=== PATIENT | female | born 1985 | race Caucasian/White ===

== ENCOUNTER 2018-05-04 20:40 | Inpatient (IN) | payer SELFPAY ==
[2018-05-04 21:46] LABS: #Basophils 0.1 thou/uL (0.0-0.2); #Eosinphils 0.1 thou/uL (0.0-0.7); #Lymphocytes 2.6 thou/uL (1.20-3.40); #Monocytes 0.8 thou/uL (0.11-0.59); #Neutrophils 6.9 thou/uL (1.40-6.50); %Basophils 0.6 % (0.0-1.0); %Lymphocytes 25.2 % (21.0-51.0); %Monocytes 7.2 % (0.0-10.0); %Neutrophils 65.9 % (42.0-75.0); Mean Corpuscular HGB CONC 32.3 g/dL (32.0-36.0); Mean Corpuscular Hemoglobin 30.6 pg (27.0-31.0); Mean Corpuscular Volume 94.9 fL (78.0-98.0); Mean Platelet Volume 9.4 fL (7.4-10.4); Platelet Count 177 thou/uL (130-400); RBC Distribution Width 14.2 % (11.5-14.5); Red Blood Cell (RBC) Count 4.58 mill/uL (4.20-5.40); White Blood Cell (WBC) Count 10.5 thou/uL (4.8-10.8)
--- NOTE | 2018-05-04 21:48 | RAD ---
CHEST TWO VIEWS: 05/04/18 HISTORY: Dyspnea. FINDINGS: The heart is borderline. There are changes of median sternotomy. The lungs are expanded without lobar consolidation, pneumothoraces, or pleural effusions. IMPRESSION: No acute process. POS: [facility]
[2018-05-04 22:09] LABS: ALT (SGPT) 93 U/L (8-55); AST (SGOT) 76 U/L (5-34); Albumin 4.1 g/dL (3.5-5.0); Alkaline Phosphatase 68 U/L (40-150); Anion Gap 13 mmol/L (10-20); BUN (Urea Nitrogen) 15 mg/dL (7.0-18.7); Bilirubin, Total 3.2 mg/dL (0.2-1.2); CK (CPK) 114 U/L (29-168); Calc. Creatinine Clearance 0 mL/min (70-130); Calcium 8.8 mg/dL (7.8-10.44); Carbon Dioxide 24 mmol/L (22-29); Chloride 105 mmol/L (98-107); Estimated GFR-MDRD 57; Globulin 2.8 g/dL (2.4-3.5); Glucose 126 mg/dL (70-105); Lipase 26 U/L (8-78); Potassium 3.7 mmol/L (3.5-5.1); Protein, Total 6.9 g/dL (6.0-8.3); Sodium 138 mmol/L (136-145)
[2018-05-04 22:10] LABS: CKMB 2.4 ng/mL (0-6.6); Troponin I 0.016 ng/mL (< 0.028)
[2018-05-04] MEDS ORDERED: Ketorolac Tromethamine 30 MG/ML VIAL ONE (23:46)
[2018-05-04] MEDS ORDERED: Ondansetron HCl/PF 4 MG/2 ML Vial ONE (23:46)
[2018-05-04] MEDS ORDERED: Pantoprazole 40 MG VIAL ONE (23:46)
[2018-05-05] MEDS ORDERED: Piperacillin/Tazobactam 4.5 GM VIAL ONE (01:55)
[2018-05-05] MEDS ORDERED: Ondansetron HCl/PF 4 MG/2 ML Vial IVP PRN ×2 (02:38→17:46)
[2018-05-05] MEDS ORDERED: Acetaminophen 325 MG TAB PO PRN (02:38)
[2018-05-05] MEDS ORDERED: Ondansetron ODT 4 MG TAB SL PRN (02:38)
[2018-05-05] MEDS: Sodium Chloride 0.9% 1,000 ML IV SCH ×3 (03:00→17:20)
[2018-05-05 03:44] VITALS: BMI 30.4
--- NOTE | 2018-05-05 08:03 | HP ---
CHIEF COMPLAINT: Muscle fatigue and right upper quadrant pain. HISTORY OF PRESENT ILLNESS: This is a 32-year-old female, who has Marfan syndrome. She reports a 2- week history of just feeling bad, diminished appetite, weakness, nausea, vomiting, and some right upp er quadrant pain radiating to the back. She has had some dark urine. PAST MEDICAL HISTORY: Significant for Marfan syndrome. PAST SURGICAL HISTORY: She had open heart surgery at [facility] in 2001. MEDICATIONS: She takes atenolol 50. ALLERGIES: LACTOSE. SOCIAL HISTORY: She is single. She works in [employer]. No tobacco, rare alcohol. FAMILY HISTORY: Marfan's in her mother's side. PHYSICAL EXAMINATION: VITAL SIGNS: Temperature 97.8, pulse 82, blood pressure 135/73. GENERAL: She has Marfan's features with long arms, short torso, long legs. HEENT: She wears glasses. LUNGS: Clear. HEART: Regular rate and rhythm. ABDOMEN: Soft. She is mildly tender in the right upper quadrant. EXTREMITIES: As described. LABORATORY AND X-RAY FINDINGS: Her white count is 10.5, H and H 14 and 43, platelet count of 177. S he has elevated bilirubin at 3.2, AST is 76 and ALT at 93. She has an ultrasound showing cholelithia sis. ASSESSMENT: Cholelithiasis, possible choledocholithiasis. PLAN: Cardiology consult for the Marfan's and GI consult for possible ERCP.
--- NOTE | 2018-05-05 08:45 | ULT ---
PRELIMINARY REPORT/[facility]/EMERGENTY AFTER-HOURS PROCEDURE US Abdomen Limited, Right Upper Quadrant EXAM DATE/TIME: 05/04/2018 11:58 PM CLINICAL HISTORY: 32 years old, female; Signs and symptoms; Nausea and vomiting and other: Diarrhea; Patient HX: Abd bl oating, inability to tolerate food TECHNIQUE: Real-time ultrasound of the abdomen with image documentation. Examination was focused on the right up per quadrant. COMPARISON: No relevant prior studies available. FINDINGS: Liver: There is mild hepatomegaly with echogenic liver suggestive of hepatic steatosis. Gallbladder: There is gallbladder wall thickening measuring up to 8 mm and pericholecystic fluid. Neg ative sonographic Marmolejo sign however patient has received pain medication making sign less reliable. Common bile duct: CBD measures up to 4 mm in diameter. Pancreas: Visualized pancreas is unremarkable. Right kidney: RIGHT kidney measures 9.2 x 3.7 x 4.7 cm. No hydronephrosis or stones. Aorta: Visualized aorta and IVC are unremarkable. Intraperitoneal space: Trace ascites is noted. IMPRESSION: 1. Nonspecific gallbladder wall thickening and pericholecystic fluid. Finding can be seen with hepati tis, CHF, acute cholecystitis among other etiologies. Correlate clinically. 2. Mild hepatomegaly with hepatic steatosis. Thank you for allowing us to participate in the care of your patient. Dictated and Authenticated by: Marcio Cristobal MD 05/05/2018 1:24 AM Central Time ([place] & [place]) FINAL REPORT EMERGENCY AFTER HOURS STUDY ULTRASOUND ABDOMEN LIMITED: (RIGHT UPPER QUADRANT) HISTORY: A 32-year-old female with abdominal bloating, nausea, emesis, anorexia. FINDINGS: A tiny amount of free fluid abutting the liver. Liver is mildly enlarged. Severe gallbladder mural thickening up to 8 mm, with mural edema. A small amount of pericholecystic fluid. Negative sonographic Marmolejo's sign, but that may not be reliable, because the patient has rec eived pain medication. No gallstone identified. Common duct 4 mm. Pancreas have a nonspecific sono graphic appearance. The hepatic veins are dilated, raising the possibility of congestive heart failu re. No hydronephrosis of the right kidney. This report agrees with preliminary report by [email or web address]. IMPRESSION: 1. Mural thickening, mural edema, and pericholecystic fluid. This is nonspecific, and possible etio logies include hepatic disease, congestive heart failure, and acute cholecystitis. 2. Mild hepatomegaly. 3. Minimal ascites. 4. Dilated hepatic veins, suggestive of congestive heart failure. WILBER Guallpa POS: [facility]
--- NOTE | 2018-05-05 15:17 | CON ---
DATE OF CONSULTATION: 05/05/2018 REASON FOR CONSULTATION: History of Marfan's and cholecystitis. HISTORY OF PRESENT ILLNESS: Ms. You is a 32-year-old woman, who recently presented with shortness of breath, weakness, and fatigue. She was found to have cholecystitis. She states her shortness of breath has been noted over the last year, but it has become progressive over the last 1 month. Stat es she has difficulty walking across the room. No chest pain or pressure noted. No other associated ameliorating or exacerbating factors present. She does state she had a heart surgery performed at 7 years old in [place], [place]. She had a valve replacement. She states it was a pig valve and not a mechanical valve. PAST MEDICAL HISTORY: Marfan's syndrome. PAST SURGICAL HISTORY: Cardiac surgery of unknown type. HOME MEDICATIONS: Include atenolol. ALLERGIES: LACTOSE. SOCIAL HISTORY: No current tobacco or alcohol use. Currently single. REVIEW OF SYSTEMS: A 10-point review of systems is reviewed and as above, otherwise negative. PHYSICAL EXAMINATION: VITAL SIGNS: Blood pressure 127/60, pulse 80, temperature 98.6. GENERAL: Patient is a pleasant female, who is in no acute distress. The patient appears her stated age. NEUROLOGIC: The patient is alert and oriented times 3 with no focal neurologic deficits. HEENT: Sclerae without icterus. Mouth has moist mucous membranes with normal pallor. NECK: No JVD. Carotid upstroke brisk. No bruits bilaterally. LUNGS: Clear to auscultation with unlabored respirations. BACK: No scoliosis or kyphosis. CARDIAC: Regular rate and rhythm with a 2/6 diastolic murmur present overlying the right upper and l eft upper sternal border. ABDOMEN: Soft, nontender, nondistended. No peritoneal signs present. No hepatosplenomegaly. No ab normal striae. EXTREMITIES: 2+ femoral and 2+ dorsalis pedis pulses. No cyanosis, clubbing, or edema. SKIN: No gross abnormalities. LABORATORY DATA: Hemoglobin 14. AST and ALT of 76 and 93. IMPRESSION: 1. Cholecystitis. 2. Marfan's syndrome. 3. Shortness of breath. 4. Murmur. RECOMMENDATIONS: Certainly, is somewhat confusing on her having heart surgery with the placement of a bioprosthetic valve. It was likely right-sided and not replacement of the aortic valve. Her murmu r may be consistent with PI. Records will be difficult to obtain. We will recommend echo with Doppl er to assess for valvular dysfunction. We will also assess her LVEF. Further recommendations pendin g the above.
[2018-05-05] MEDS ORDERED: Calcium Carbonate 500 MG ChewTAB PO PRN (17:46)
[2018-05-05] MEDS ORDERED: Ondansetron ODT 4 MG TAB PO PRN (17:46)
[2018-05-05] MEDS ORDERED: hydrALAZINE 20 MG/ML VIAL SLOW IVP PRN (17:46)
--- NOTE | 2018-05-05 17:59 | HP ---
CONSULTATION NOTE: DATE OF CONSULTATION: 05/05/2018 PRIMARY CARE PHYSICIAN: None. REASON FOR CONSULTATION: Medical management. HISTORY OF PRESENT ILLNESS: Patient is a 32-year-old female with unknown cardiac surgery in 2001, presented to the emergency room with generalized weakness, fatigue, nausea, vomiting, and loss of appetite. She is currently admitted under General Surgery Service for suspected acute cholecystitis. Over the last 1 year, patient has progressively worsening shortness of breath. It got worse over the last one month or also. Patient has generalized fatigue and lack of energy. She is unable to lie down flat. At times, she wakes up in the middle of the night gasping for air. She also occasionally noticed lower extremity swelling. She had cough which was essentially dry. She has also lost her appetite. No fever or chills reported. No recent immobilization, syncope or travel reported. PAST MEDICAL HISTORY: Marfan syndrome. PAST SURGICAL HISTORY: Open heart surgery in 2001 at [facility] and left eye surgery as a child. CURRENT HOME MEDICATIONS: Reviewed with the patient and none. ALLERGIES: LACTOSE. SOCIAL HISTORY: She is single. She works as a etl data architect. She denies any tobacco use. She rarely drinks alcohol. FAMILY HISTORY: Positive for Marfan's on the mother's side. REVIEW OF SYSTEMS: The following complete review of systems was negative, unless otherwise mentioned in the HPI or below: Constitutional: Weight loss or gain, ability to conduct usual activities. Skin: Rash, itching. Eyes: Double vision, pain. ENT/Mouth: Nose bleeding, neck stiffness, pain, tenderness. Cardiovascular: Palpitations, dyspnea on exertion, orthopnea. Respiratory: Shortness of breath, wheezing, cough, hemoptysis, fever or night sweats. Gastrointestinal: Poor appetite, abdominal pain, heartburn, nausea, vomiting, constipation, or diarrhea. Genitourinary: Urgency, frequency, dysuria, nocturia. Musculoskeletal: Pain, swelling. Neurologic/Psychiatric: Anxiety, depression. Allergy/Immunologic: Skin rash, bleeding tendency. PHYSICAL EXAMINATION: VITAL SIGNS: Temperature 97.9, respirations 20, pulse 80, blood pressure 141/ 54 with O2 saturation 93% on room air. GENERAL: A 32-year-old female in no apparent distress. Denies any chest pain. HEENT: Head atraumatic, normocephalic. Sclerae are anicteric. Moist mucous membrane, no oral lesion. NECK: Supple, no JVD, no carotid bruit. LUNGS: Clear to auscultation bilaterally with occasional rales, especially at bases. No wheezing. Lungs were symmetrical. No accessory muscle use. HEART: S1, S2 present, 3/6 systolic murmur over the left lateral sternal border. No heaves or pulsation. ABDOMEN: Soft, nontender, bowel sounds present. EXTREMITIES: No edema or calf tenderness. NEUROLOGIC: Grossly nonfocal, moves all four extremities. PSYCHIATRY: Alert, awake, oriented x3. SKIN: Warm and dry. LYMPH NODES: No palpable lymph nodes in the neck. PERIPHERAL VASCULAR: Radial pulses palpable bilaterally. MUSCULOSKELETAL: No joint swelling or tenderness. LABORATORY DATA AND IMAGING DATA: CBC showed WBC 10.5 with hemoglobin 14, hematocrit 43.5, platelet 177. Chemistries showed sodium 138, potassium 3.7, chloride 105, bicarbonate 24, BUN 15, creatinine 1.1, total bilirubin 3.2, AST 76, ALT 93, alkaline phosphatase was normal. Lipase was normal. Cardiac enzymes were normal. test negative. Chest x-ray by my review was negative for infiltrate. Right upper quadrant ultrasound showed nonspecific gallbladder wall thickening and pericholecystic fluid with mild hepatomegaly and hepatic steatosis. EKG my review showed normal sinus rhythm with left ventricular hypertrophy with nonspecific ST-T wave changes. IMPRESSION: 1. Generalized weakness, fatigue of unclear etiology. 2. Suspected congestive heart failure. 3. Obesity with body mass index 30.4. 4. Abnormal liver function tests. 5. Chronic kidney disease stage 2. 6. Open heart surgery in 2001. 7. Marfan syndrome. PLAN: The patient will be monitored on the surgical floor. Echocardiogram is currently ordered and pending at this time. We will check TSH and cortisol. We will also rule out autoimmune etiology. We will check BNP in a.m. We will minimize IV fluids. We will hold diuretics for now. Continue proton pump inhibitors. Plan of care was discussed with the patient. She stated understanding. MTDD
--- NOTE | 2018-05-05 22:34 | CON ---
GASTROENTEROLOGY CONSULTATION DATE OF CONSULTATION: 05/05/2018 CHIEF COMPLAINT: Abnormal liver test and shortness of breath. HISTORY OF PRESENT ILLNESS: Ms. You is a 32-year-old woman with a history of Marfan syndrome who underwent a bioprosthetic valve replacement several years ago. She is unsure which valve was actuall y replaced. She reports that she has had shortness of breath on exertion over the last month. Over the last week and a half to a week, she has had nausea and loss of appetite. She vomited once yester day. She has had some epigastric burning, which has been mild overall and infrequent not bothering h er today. She primarily went to the emergency room due to the shortness of breath and overall weakne ss since this was worsening. During her evaluation in the emergency room, she had an ultrasound perf ormed, which did show gallbladder thickening and edema and some ascites and pericholecystic fluid. S he had dilated hepatic veins suggestive of hepatic congestion and some hepatomegaly. Her common bile duct measured 4 mm. She was noted to have a significant heart murmur and a history of Marfan syndro me and prior valve replacement and Dr. Key consulted Dr. Ga for cardiac evaluation. PAST MEDICAL HISTORY: Marfan syndrome. PAST SURGICAL HISTORY: Some type of valve replacement surgery many years ago. She had some type of eye procedure performed years ago. FAMILY HISTORY: Positive for pancreatic cancer in grandmother. SOCIAL HISTORY: No alcohol, tobacco, or drugs. ALLERGIES: No known drug allergies. MEDICATIONS PRIOR TO ADMISSION: None. REVIEW OF SYSTEMS: Negative x10 systems reviewed except as stated in the history of present illness. PHYSICAL EXAMINATION: VITAL SIGNS: Temperature 97.5, pulse 83, blood pressure 130/73. GENERAL: She is in no acute distress. She is alert and oriented x3. HEENT: Eyes have no scleral icterus. Oropharynx is clear without lesions. NECK: No cervical or supraclavicular lymphadenopathy. LUNGS: Clear to auscultation bilaterally. HEART: Has a diastolic and systolic murmur in the right upper sternal border and left lower sternal border. EXTREMITIES: No lower extremity edema. NEUROLOGIC: Cranial nerves are grossly intact. LABORATORY DATA: Creatinine 1.1, bilirubin 3.2, AST 76, ALT 93, alkaline phosphatase 68, albumin 4.1 , lipase 26. White blood cell count 10.5, hemoglobin 14.0, platelets 177,000. IMPRESSION: 1. Abnormal liver function tests. The elevated liver tests and gallbladder wall thickening and cordell a most likely secondary to hepatic congestion from right-sided heart failure. She has no significant abdominal pain to suggest acute cholecystitis at this time. She has no tenderness over the right up per quadrant. Her common bile duct measures 4 mm. Her transaminases are mildly elevated with elevat ed bilirubin more suggestive of a hepatocellular injury pattern with a normal alkaline phosphatase. 2. Gallbladder thickening. Again, I think this is from hepatic congestion rather than acute cholecy stitis. If she starts developing more symptoms and the echocardiogram is not revealing, then a HIDA scan could be considered. Given the elevated bilirubin and pretest probability, at this point I woul d hold off HIDA scan. Also, if her bilirubin climbs and were again concerned more about potential fo r choledocholithiasis and MRCP can be considered, but at this point, again, there is a low pretest pr obability and I would avoid this test for now. RECOMMENDATIONS: 1. Await cardiology evaluation and echocardiogram. 2. Follow trend of the liver tests. 3. Check viral hepatitis panel.
[2018-05-06 05:57] LABS: INR-International Normal Ratio 1.4; Prothrombin Time 17.6 SEC (12.0-14.7)
[2018-05-06 06:02] LABS: #Basophils 0.1 thou/uL (0.0-0.2); #Lymphocytes 2.7 thou/uL (1.20-3.40); #Monocytes 0.9 thou/uL (0.11-0.59); #Neutrophils 7.5 thou/uL (1.40-6.50); %Basophils 1.1 % (0.0-1.0); %Eosinophils 0.4 % (0.0-10.0); %Lymphocytes 24.1 % (21.0-51.0); %Monocytes 7.6 % (0.0-10.0); %Neutrophils 66.7 % (42.0-75.0); Hemoglobin 13.6 g/dL (12.0-16.0); Mean Corpuscular HGB CONC 32.3 g/dL (32.0-36.0); Mean Corpuscular Hemoglobin 30.7 pg (27.0-31.0); Mean Platelet Volume 9.5 fL (7.4-10.4); Platelet Count 166 thou/uL (130-400); RBC Distribution Width 14.7 % (11.5-14.5); Red Blood Cell (RBC) Count 4.41 mill/uL (4.20-5.40); White Blood Cell (WBC) Count 11.3 thou/uL (4.8-10.8)
[2018-05-06 06:13] LABS: ALT (SGPT) 228 U/L (8-55); AST (SGOT) 215 U/L (5-34); Albumin 3.7 g/dL (3.5-5.0); Alkaline Phosphatase 66 U/L (40-150); Anion Gap 14 mmol/L (10-20); BUN (Urea Nitrogen) 15 mg/dL (7.0-18.7); Bilirubin, Total 5.4 mg/dL (0.2-1.2); Calc. Creatinine Clearance 131 mL/min (70-130); Calcium 8.5 mg/dL (7.8-10.44); Carbon Dioxide 17 mmol/L (22-29); Chloride 108 mmol/L (98-107); Estimated GFR-MDRD 73; Globulin 2.5 g/dL (2.4-3.5); Glucose 109 mg/dL (70-105); Iron 52 ug/dL (50-170); Iron Binding Capacity, Total 263 mcg/dL (265-497); Magnesium 1.9 mg/dL (1.6-2.6); Protein, Total 6.2 g/dL (6.0-8.3); Sodium 135 mmol/L (136-145)
[2018-05-06 06:27] LABS: HBCM Index 0.09 S/CO (0-0.79); HBSAg Index 0.16 S/CO (0-0.99); Hep A IgM AB Non-Reactive (NonReactive); Hep A IgM S/CO 0.14 S/CO (0-0.79); Hep B Surf Ag Non-Reactive S/CO (NonReactive); Hep C IgG Ab Non-Reactive (NonReactive); Hepatitis B Core IGM Abs Non-Reactive (NonReactive); Thyroid Stimulating Hormone 1.2124 uIU/mL (0.35-4.94)
--- NOTE | 2018-05-06 10:18 | PRG ---
DATE OF SERVICE: 05/06/2018 SUBJECTIVE: The patient states she is feeling fine. No pain, no nausea. She is undergoing evaluati on by Cardiology and GI. GI does not feel she has cholecystitis, feels that this is totally related to her cardiac dysfunction and Marfan syndrome. She does not have any gallstones. She just had some thickening of the wall and some pericholecystic fluid. OBJECTIVE: VITAL SIGNS: Temperature is 97.6, pulse 90, blood pressure 176/69. LABORATORY DATA: Her white count is 11.3, H&H 13 and 41, platelet count of 166. Her bilirubin is up to 5.4. BNP is 2624. ASSESSMENT: Right heart failure. PLAN: Per Cardiology and [facility], would like to transfer this patient to the [facility]. I do not feel that she has any surgical disease.
[2018-05-06] MEDS ORDERED: Furosemide 40 MG/4 ML VIAL SLOW IVP SCH (14:00)
--- NOTE | 2018-05-06 14:46 | PDOC.PN ---
- Subjective Encounter Start Date: 05/06/18 Encounter Start Time: 09:30 Patient seen and examined for Gen weakness. No new complaints. SOB on exertion + . No overnight events - Objective MAR Reviewed: Yes Vital Signs & Weight: Vital Signs (12 hours) Temp Pulse Resp BP Pulse Ox 05/06/18 13:15 98.1 F 86 18 144/65 H 95 05/06/18 11:59 98.0 F 84 15 146/71 H 95 05/06/18 08:30 95 05/06/18 08:00 97.6 F 90 18 176/69 H 95 05/06/18 03:50 98.3 F 83 16 136/72 92 L Weight Weight 206 lb I&O: 05/05/18 05/06/18 05/07/18 06:59 06:59 06:59 Intake Total 2282.5 Output Total 100 Balance 2182.5 Result Diagrams: 05/06/18 05:20 05/06/18 05:20 Phys Exam - Physical Examination Constitutional: NAD Respiratory: no wheezing, no rhonchi Cardiovascular: RRR, no rub Gastrointestinal: soft, positive bowel sounds Musculoskeletal: edema present Neurological: moves all 4 limbs Dx/Plan - Plan DVT proph w/SCDs IMPRESSION: 1. Generalized weakness and fatigue - multifactorial 2. Suspected congestive heart failure ? systolic - Stage C 3. Obesity with body mass index 30.4. 4. Abnormal liver function tests - worsening 5. Chronic kidney disease stage 2. 6. Open heart surgery in 2001. 7. Marfan syndrome. PLAN: Transfer to tele Diuresis Add ACEI/Betablocker Monitor BMP on daily basis Await Echo Cont other meds as below Add fluid rest Laboratory Tests 05/06/18 05/06/18 05/06/18 05:20 05:20 05:20 PT 17.6 H INR 1.4 Iron 52 TIBC 263 L Total Bilirubin 5.4 H AST 215 H ALT 228 H C-Reactive Protein B-Natriuretic Peptide TSH 3rd Generation 1.2124 Cortisol Hepatitis A IgM Ab Non-Reactive Hep Bs Antigen Non-Reactive Hep B Core IgM Ab Non-Reactive Hepatitis C Antibody Non-Reactive 05/06/18 05/06/18 05/06/18 05:20 05:20 05:20 PT INR Iron TIBC Total Bilirubin AST ALT C-Reactive Protein 1.05 H B-Natriuretic Peptide 2624.6 H TSH 3rd Generation Cortisol 11.70 Hepatitis A IgM Ab Hep Bs Antigen Hep B Core IgM Ab Hepatitis C Antibody Review of Systems - Review of Systems Respiratory: Shortness of Breath, SOB with Excertion. negative: Cough, Dry, Hemoptysis, Pleuritic Pain, Sputum, Wheezing Cardiovascular: negative: chest pain, palpitations, orthopnea, paroxysmal nocturnal dyspnea, edema, light headedness, other - Medications/Allergies Allergies/Adverse Reactions: Allergies Allergy/AdvReac Type Severity Reaction Status Date / Time No Known Drug Allergies Allergy Verified 05/05/18 03:10 Medications: Current Medications Calcium Carbonate (Tums) 1,000 mg PO Q4H PRN PRN Reason: Heartburn or Indigestion Carvedilol (Coreg) 3.125 mg PO BID [facility] Furosemide (Lasix) 40 mg SLOW IVP 0600,1400 [facility] Hydralazine HCl (Apresoline) 10 mg SLOW IVP Q4H PRN PRN Reason: SBP Greater Than 180 Lisinopril (Zestril) 2.5 mg PO DAILY [facility] Ondansetron HCl (Zofran Odt) 4 mg PO Q6H PRN PRN Reason: Nausea/Vomiting Last Admin: 05/05/18 20:27 Dose: 4 mg Ondansetron HCl (Zofran) 4 mg IVP Q6H PRN PRN Reason: Nausea/Vomiting Pantoprazole Sodium (Protonix) 40 mg PO DAILY [facility] Last Admin: 05/06/18 09:20 Dose: 40 mg Sodium Chloride (Flush - Normal Saline) 10 ml IVF Q12HR [facility] Last Admin: 05/06/18 09:22 Dose: Not Given Sodium Chloride (Flush - Normal Saline) 10 ml IVF PRN PRN PRN Reason: Saline Flush
[2018-05-06 15:57] VITALS: BP 135/63; TEMP 97.8
--- NOTE | 2018-05-06 17:20 | PRG ---
DATE OF SERVICE: 05/06/2018 SUBJECTIVE: Ms. Cerda continues to have shortness of breath. She has been placed on Lasix in addit ion to carvedilol and lisinopril. She denies chest pain or pressure. Her recent echo with Doppler d id suggest severe wide open AI, previous prosthetic aortic valve. Her LVEF is estimated at 35%. OBJECTIVE: VITAL SIGNS: Blood pressure 135/63, pulse 89, temperature 97.8. GENERAL: Patient is a pleasant female who is in no acute distress. The patient appears her stated a ge. NEUROLOGIC: The patient is alert and oriented times 3 with no focal neurologic deficits. HEENT: Sclerae without icterus. Mouth has moist mucous membranes with normal pallor. NECK: No JVD. Carotid upstroke brisk. No bruits bilaterally. LUNGS: Clear to auscultation with unlabored respirations. BACK: No scoliosis or kyphosis. CARDIAC: 2/6 diastolic murmur. ABDOMEN: Soft, nontender, nondistended. No peritoneal signs present. No hepatosplenomegaly. No abnormal striae. EXTREMITIES: 2+ femoral and 2+ dorsalis pedis pulses. No cyanosis, clubbing, or edema. SKIN: No gross abnormalities. PERTINENT LABORATORY DATA: Hemoglobin 13.6, creatinine 0.89. IMPRESSION: 1. Severe AI. 2. Acute systolic heart failure. RECOMMENDATIONS: The patient initially presented with possible cholecystitis. This is likely due to passive congestion from her cardiomyopathy. She had a prosthetic aortic valve placed when she was 7 years old. At this point, I discussed the case with Dr. Glen Gallo. Given the findings and the fact that she has a history of Marfan's syndrome, he does not feel comfortable proceeding with any ty pe of intervention. We would recommend she be transferred to a center of higher care. I discussed t he case with , who has accepted the patient in transfer. I have discussed this with Ms. Devon webber. She is agreeable.
--- NOTE | 2018-05-06 19:34 | DIS ---
DATE OF DISCHARGE: 05/06/2018 DISCHARGE DISPOSITION: [facility] for higher level of care. BRIEF HOSPITAL COURSE: The patient is a 32-year-old female with Marfan's syndrome with unknown cardi ac surgery in 2001, presented to the emergency room with generalized weakness, fatigue, nausea and vo miting as well as loss of appetite. The patient was initially admitted under general surgery for pos sible acute cholecystitis due to abnormal LFTs. Total bilirubin on admission was 3.2. The bilirubin got worse today to 5.4. Symptoms were not consistent with acute cholecystitis. A right upper quadr ant ultrasound showed nonspecific gallbladder wall thickening and pericholecystic fluid. There was a lso mild hepatomegaly and hepatic steatosis. The patient was also evaluated by Gastroenterology. Du e to shortness of breath, orthopnea, and paroxysmal nocturnal dyspnea, the patient was evaluated by C ardiology. An echocardiogram was performed that showed severe aortic regurgitation with mild to mode rate tricuspid regurgitation, mildly elevated pulmonary artery pressure with ejection fraction of 35% -40%. Left ventricle was mildly dilated. There was a bioprosthetic aortic valve. The patient is cu rrently being transferred to [facility] for higher level of care per Cardiology recommendation. FINAL DIAGNOSES: 1. Acute systolic heart failure exacerbation. 2. Severe aortic insufficiency. 3. Bioprosthetic aortic valve. 4. Obesity with BMI 30.4. 5. Abnormal liver function tests secondary to passive hepatic congestion. 6. Chronic kidney disease stage 2. 7. Marfan's syndrome. 8. Open heart surgery in 2001. 9. Generalized weakness and fatigue secondary to congestive heart failure.
[2018-05-06] MEDS ORDERED: Carvedilol 3.125 MG TAB PO SCH (21:00)
[2018-05-07] MEDS ORDERED: Lisinopril 2.5 MG TAB PO SCH (09:00)
== END 2018-05-06 18:10 | disposition short-term general hospital (02) | DRG 306 ==
LOC: ERS 20:40 → SJJU 05-05 01:40 → 2NO 05-06 13:17
PROVIDERS: ADMIT Surgery; ATTEND Surgery
DX: I08.2 Rheumatic disorders of both aortic and tricuspid valves (principal); I50.21 Acute systolic (congestive) heart failure; Q87.40 Marfan syndrome, unspecified; I42.9 Cardiomyopathy, unspecified; F41.9 Anxiety disorder, unspecified; F32.9 Major depressive disorder, single episode, unspecified; E66.9 Obesity, unspecified; Z68.30 Body mass index [BMI] 30.0-30.9, adult; N18.2 Chronic kidney disease, stage 2 (mild); Z95.3 Presence of xenogenic heart valve
CPT/HCPCS: 36415; 71046; 76705; 80053; 80074; 82533; 82550; 82553; 83540; 83550; 83690; 83735; 83880; 84100; 84443; 84484; 84702; 85025; 85610; 86038; 86140; 86225; 93005; 93010; 93306; 96361; 96365; 96375; C9113; J1885; J1940; J2405; J2543; Q0162

== ENCOUNTER 2024-07-22 05:14 | Emergency (ER) | payer BC, OTHER ==
[2024-07-22] MEDS ORDERED: Ondansetron PF 4 MG/2 ML Vial ONE (05:29)
[2024-07-22] MEDS ORDERED: Morphine 4 MG/ML VIAL ONE (05:29)
[2024-07-22 05:35] LABS: #Basophils 0.05 10x3/uL (0.0-0.2); %Basophils 0.4 % (0.0-1.0); %Eosinophils 4.3 % (0.0-10.0); %Lymphocytes 31.5 % (21.0-51.0); %Monocytes 7.3 % (0.0-10.0); Hematocrit 37.3 % (36.0-47.0); Hemoglobin 12.1 g/dL (12.0-16.0); Mean Corpuscular HGB CONC 32.4 g/dL (32.0-36.0); Mean Corpuscular Hemoglobin 28.3 pg (27.0-31.0); Mean Corpuscular Volume 87.1 fL (78.0-98.0); Mean Platelet Volume 9.7 fL (7.4-10.4); Platelet Count 262 10x3/uL (130-400); RBC Distribution Width 15.1 % (11.5-14.5); Red Blood Cell (RBC) Count 4.28 mill/uL (4.20-5.40)
[2024-07-22 05:59] LABS: BHCG - Serum Negative (NEGATIVE); Pregs Control Background? CLEAR/WHITE (CLR/WHITE); Pregs Control Bar Appear? YES (CONTROL BAR)
[2024-07-22 06:01] LABS: ALT (SGPT) 28 U/L (8-55); AST (SGOT) 27 U/L (5-34); Albumin 4.1 g/dL (3.5-5.0); Alkaline Phosphatase 74 U/L (40-110); Anion Gap 14 mmol/L (10-20); BUN (Urea Nitrogen) 15 mg/dL (7.0-18.7); Bilirubin, Total 0.7 mg/dL (0.2-1.2); Calc. Creatinine Clearance 0 mL/min (70-130); Carbon Dioxide 21 mmol/L (22-29); Chloride 105 mmol/L (98-107); Estimated GFR 69; Globulin 3.8 g/dL (2.4-3.5); Glucose 183 mg/dL (70-105); Potassium 3.7 mmol/L (3.5-5.1); Protein, Total 7.9 g/dL (6.0-8.3); Sodium 136 mmol/L (136-145)
[2024-07-22 06:04] LABS: Troponin I Less than 0.010 ng/mL (< 0.028)
[2024-07-22] MEDS ORDERED: Esmolol 2,500 MG/250 ML 250 ML ONE (06:15)
[2024-07-22] MEDS ORDERED: niCARdipine 25 MG/10 ML SDV ONE ×2 (06:28→08:03)
[2024-07-22] MEDS ORDERED: Esmolol 100 MG/10 ML VIAL IVP SCH (06:30)
[2024-07-22] MEDS ORDERED: fentaNYL 50 mcg/mL 1 mL Vial ONE ×2 (06:47→08:02)
[2024-07-22 07:05] LABS: INR-International Normal Ratio 0.9; PTT 24.9 sec (22.9-36.1); Prothrombin Time 12.4 sec (12.0-14.7)
[2024-07-22] MEDS ORDERED: Iopamidol-370 76% 500 ML MDV (1 ML CHARGE) ONE (09:05)
== END 2024-07-22 08:11 | disposition short-term general hospital (02) ==
LOC: ERS 05:14
DX: I71.00 Dissection of unspecified site of aorta (principal); E11.9 Type 2 diabetes mellitus without complications
CPT/HCPCS: 71045; 71275; 74174; 80053; 83690; 83880; 84484; 84703; 85025; 85610; 85730; 93005; 96374; 96375; 96376; J2272; J2405; J3010; Q9967